=== PATIENT | female | born 1995 | race Caucasian/White ===

== ENCOUNTER 2018-10-04 12:26 | Emergency (ER) | payer BC ==
[2018-10-04] MEDS ORDERED: Promethazine 25 MG Tab PO ONE (12:27)
[2018-10-04 12:45] VITALS: BP 110/49
[2018-10-04] MEDS ORDERED: Sodium Chloride 0.9% 1,000 ML IV ONE (12:57)
[2018-10-04] MEDS ORDERED: Ondansetron 4 MG/2 ML SDV IVPUSH PRN (13:00)
[2018-10-04 13:11] LABS: CHLORIDE,CL 104 mEq/L (98-106); SODIUM,NA 140 mEq/L (136-145)
--- NOTE | 2018-10-04 13:32 | EDM.PDOC ---
ED HPI GENERAL MEDICAL PROBLEM - General Chief Complaint: Headache Stated Complaint: HEADACHE,RIGHT SIDED PAIN Time Seen by Provider: 10/04/18 12:45 Source of Information: Reports: Patient, Family History Limitations: Reports: No Limitations - History of Present Illness INITIAL COMMENTS - FREE TEXT/NARRATIVE: Germania is a 22 year old female who presents to the ED with c/o headache. She reports around 1030 this am, she noticed some vision loss/blurred vision of her right eye and she had some right arm numbness and tingling. She reports that those have since resolved, but she does have a "terrible headache" and is nauseated. Reports upon presentation her vision is normal, but does "come and go." She reports she did take Tylenol prior to coming to ED. She reports she hasn't been sleeping well the past few days and is very tired. She does report that she had her menstrual cycle on September 16. She reports she missed a pill a few days ago and then took 2 the next day. She has had some spotting since then. Chart review does show that she was in in 2016 with same complaints. Did have normal head CT at that time and was diagnosed with atypical migraines. She reports she has not had an episode like this again until now. GCS 15. Onset: Today, Sudden Onset Date: 10/04/18 Onset Time: 10:30 Duration: Constant Location: Reports: Head Quality: Reports: Ache, Throbbing Severity: Severe Improves with: Reports: None Worsens with: Reports: Movement Context: Reports: Activity Associated Symptoms: Reports: Headaches, Nausea/Vomiting (nausea, no vomiting). Denies: Confusion, Chest Pain, Cough, cough w sputum, Diaphoresis, Fever/ Chills, Loss of Appetite, Malaise, Rash, Seizure, Shortness of Breath, Syncope, Weakness Treatments PRIVACY COMPLIANCE MANAGER: Reports: Acetaminophen Headache Pain Score (Numeric/FACES): 5 - Related Data Allergies Allergy/AdvReac Type Severity Reaction Status Date / Time No Known Allergies Allergy Verified 10/04/18 12:32 Home Meds: Home Meds Desogestrel-Ethinyl Estradiol [Velivet 28 Day Tablet] 1 tab PO DAILY 05/16/14 [ History] Past Medical History - Past Health History Medical/Surgical History: Denies Medical/Surgical History [employer] History: Reports: Neurological History: Reports: Migraines Social & Family History - Family History Family Medical History: Noncontributory - Recreational Drug Use Recreational Drug Use: No - Living Situation & Occupation Living situation: Reports: Occupation: Employed ED ROS GENERAL - Review of Systems Review Of Systems: ROS reveals no pertinent complaints other than HPI. - Physical Exam Exam: See Below Exam Limited By: No Limitations General Appearance: Alert, WD/WN, Mild Distress Eye Exam: Bilateral Eye: EOMI, Normal Fundi, Normal Inspection, PERRL Ears: Normal External Exam, Normal Canal, Hearing Grossly Normal, Normal TMs Nose: Normal Inspection, Normal Mucosa, No Blood Throat/Mouth: Normal Inspection, Normal Lips, Normal Teeth, Normal Gums, Normal Oropharynx, Normal Voice, No Airway Compromise Head Exam: Atraumatic, Normocephalic Neck: Normal Inspection, Supple, Non-Tender, Full Range of Motion Respiratory/Chest: No Respiratory Distress, Lungs Clear, Normal Breath Sounds, No Accessory Muscle Use, Chest Non-Tender Cardiovascular: Normal Peripheral Pulses, Regular Rate, Rhythm, No Edema, No Gallop, No JVD, No Murmur, No Rub GI/Abdominal: Normal Bowel Sounds, Soft, Non-Tender, No Organomegaly, No Distention, No Abnormal Bruit, No Mass Neuro Exam (Abbreviated): Alert, Oriented, CN II-XII Intact, Normal Cognition, No Motor/Sensory Deficits. No: Confused, Disoriented, Slow to Respond, Unresponsive, Memory Loss Recent Events, Sensory/Motor Deficit Back Exam: Normal Inspection, Full Range of Motion, NT Extremities: Normal Inspection, Normal Range of Motion, Non-Tender, No Pedal Edema, Normal Capillary Refill Psychiatric: Tearful Skin Exam: Warm, Dry, Intact, Normal Color, No Rash Course - Vital Signs Last Recorded V/S: Last Vital Signs Temp 97.9 F 10/04/18 12:33 Pulse 69 10/04/18 12:33 Resp 16 10/04/18 12:33 BP 110/49 L 10/04/18 12:33 Pulse Ox 100 10/04/18 12:33 - Orders/Labs/Meds Orders: Active Orders 24 hr Category Date Time Status Ondansetron [Zofran] Med 10/04/18 13:00 Active 4 mg IVPUSH Q6H PRN Medication Orders Ondansetron HCl (Zofran) 4 mg IVPUSH Q6H PRN PRN Reason: Nausea Last Admin: 10/04/18 13:05 Dose: 4 mg Labs: Laboratory Tests 10/04/18 10/04/18 10/04/18 Range/Units 12:46 12:46 12:56 WBC 7.9 (5.0-10.0) 10^3/uL RBC 4.70 (4.00-5.50) 10^6/uL Hgb 14.1 (12.0-16.0) g/dL Hct 41.0 (37.0-47.0) % MCV 87.2 (82.0-94.0) fL MCH 30.0 (27.0-32.0) pg MCHC 34.4 (33.0-38.0) g/dL RDW Coeff of Ryan 13.2 (11.0-15.0) % Plt Count 291 (150-400) 10^3/uL Neut % (Auto) 74.4 (35-85) % Lymph % (Auto) 17.8 (10-55) % [place] % (Auto) 6.9 (0-16) % Eos % (Auto) 0.6 (0-5) % Baso % (Auto) 0.3 (0-3) % Neut # (Auto) 5.91 (1.80-7.00) 10^3/uL Lymph # (Auto) 1.41 (1.00-4.80) 10^3/uL [place] # (Auto) 0.55 (0.00-0.80) 10^3/uL Eos # (Auto) 0.05 (0.00-0.45) 10^3/uL Baso # (Auto) 0.02 10^3/uL Sodium 140 (136-145) mEq/L Potassium 3.3 L (3.5-5.0) mEq/L Chloride 104 (98-106) mEq/L Carbon Dioxide 24 (21-32) mmol/L BUN 13 (7-18) mg/dL Creatinine 0.9 (0.6-1.0) mg/dL Est Cr Clr Drug Dosing 92.82 mL/min Estimated GFR (MDRD) > 60 (>=60) mL/min Glucose 93 (75-99) mg/dL Calcium 8.4 (8.4-10.1) mg/dL Total Bilirubin 1.3 H (0.0-1.0) mg/dL AST 17 (15-37) U/L ALT 28 (12-78) U/L Alkaline Phosphatase 50 (46-116) U/L C-Reactive Protein 0.6 (0.2-0.8) mg/dL Total Protein 7.0 (6.4-8.2) g/dL Albumin 3.6 (3.4-5.0) g/dL Urine Color Yellow (YELLOW) Urine Appearance Slightly cloudy (CLEAR) Urine pH 7.0 (4.5-8.0) Ur Specific [place] 1.025 H (1.003-1.020) Urine Protein Negative (NEGATIVE) mg/dL Urine Glucose (UA) Negative (NEGATIVE) mg/dL Urine Ketones 40 H (NEGATIVE) mg/dL Urine Occult Blood Moderate H (NEGATIVE) Urine Nitrite Negative (NEGATIVE) Urine Bilirubin Negative (NEGATIVE) Urine Urobilinogen 0.2 (0.2-1.0) EU/dL Ur Leukocyte Esterase Negative (NEGATIVE) Urine RBC 0-5 (0-5) /HPF Urine WBC Not seen (0-5) /HPF Ur Squamous Epith Cells Few H (NOT SEEN) /HPF Urine Bacteria Occasional H (NOT SEEN) /HPF Urine Mucus Few H (NOT SEEN) /HPF Urine HCG, Qual 10/04/18 Range/Units 13:18 WBC (5.0-10.0) 10^3/uL RBC (4.00-5.50) 10^6/uL Hgb (12.0-16.0) g/dL Hct (37.0-47.0) % MCV (82.0-94.0) fL MCH (27.0-32.0) pg MCHC (33.0-38.0) g/dL RDW Coeff of Ryan (11.0-15.0) % Plt Count (150-400) 10^3/uL Neut % (Auto) (35-85) % Lymph % (Auto) (10-55) % [place] % (Auto) (0-16) % Eos % (Auto) (0-5) % Baso % (Auto) (0-3) % Neut # (Auto) (1.80-7.00) 10^3/uL Lymph # (Auto) (1.00-4.80) 10^3/uL [place] # (Auto) (0.00-0.80) 10^3/uL Eos # (Auto) (0.00-0.45) 10^3/uL Baso # (Auto) 10^3/uL Sodium (136-145) mEq/L Potassium (3.5-5.0) mEq/L Chloride (98-106) mEq/L Carbon Dioxide (21-32) mmol/L BUN (7-18) mg/dL Creatinine (0.6-1.0) mg/dL Est Cr Clr Drug Dosing mL/min Estimated GFR (MDRD) (>=60) mL/min Glucose (75-99) mg/dL Calcium (8.4-10.1) mg/dL Total Bilirubin (0.0-1.0) mg/dL AST (15-37) U/L ALT (12-78) U/L Alkaline Phosphatase (46-116) U/L C-Reactive Protein (0.2-0.8) mg/dL Total Protein (6.4-8.2) g/dL Albumin (3.4-5.0) g/dL Urine Color (YELLOW) Urine Appearance (CLEAR) Urine pH (4.5-8.0) Ur Specific [place] (1.003-1.020) Urine Protein (NEGATIVE) mg/dL Urine Glucose (UA) (NEGATIVE) mg/dL Urine Ketones (NEGATIVE) mg/dL Urine Occult Blood (NEGATIVE) Urine Nitrite (NEGATIVE) Urine Bilirubin (NEGATIVE) Urine Urobilinogen (0.2-1.0) EU/dL Ur Leukocyte Esterase (NEGATIVE) Urine RBC (0-5) /HPF Urine WBC (0-5) /HPF Ur Squamous Epith Cells (NOT SEEN) /HPF Urine Bacteria (NOT SEEN) /HPF Urine Mucus (NOT SEEN) /HPF Urine HCG, Qual Negative Meds: Medications Generic Name Dose Route Start Last Admin Trade Name Freq PRN Reason Stop Dose Admin Ondansetron HCl 4 mg 10/04/18 13:00 10/04/18 13:05 Zofran IVPUSH 4 mg Q6H PRN Administration Nausea Discontinued Medications Generic Name Dose Route Start Last Admin Trade Name Freq PRN Reason Stop Dose Admin Sodium Chloride 1,000 mls @ 999 mls/hr 10/04/18 12:57 10/04/18 13:10 Normal Saline IV 10/04/18 13:57 999 mls/hr .BOLUS ONE Administration Ketorolac Tromethamine 30 mg 10/04/18 13:34 10/04/18 13:42 Toradol IVPUSH 10/04/18 13:35 30 mg ONETIME ONE Administration - Re-Assessments/Exams Free Text/Narrative Re-Assessment/Exam: 10/04/18 13:00 Discussed exam findings and past medical history including similar presenting symptoms with migraine. At this time I do not feel imaging is warranted. Patient has no neurological deficit. Same aura as previous migraine in 2016. We will hydrate her. Check labs. Zofran for nausea. 10/04/2018 13:45 Discussed lab findings with patient. Will finish fluid bolus and see how patient is doing. Toradol for headache. 10/04/18 14:08 Patient reports her headache has improved. She has no neurological deficit. Is alert and oriented. She wishes to go home. She is still nauseated but reports she hasn't eaten anything since yesterday. Discussed discharge recommendations with patient. Departure - Departure Time of Disposition: 14:10 Disposition: Home, Self-Care 01 Clinical Impression: Migraine with aura Qualifiers: Status migrainosus presence: without status migrainosus Intractability: not intractable Qualified Code(s): G43.109 - Migraine with aura, not intractable, without status migrainosus - Discharge Information *PRESCRIPTION DRUG MONITORING PROGRAM REVIEWED*: Not Applicable *COPY OF PRESCRIPTION DRUG MONITORING REPORT IN PATIENT [place]: Not Applicable Instructions: Migraine Headache, [id number] Forms: ED Department Discharge Additional Instructions: 1) Tylenol 1000 mg every 6 hours as needed for headache. Ibuprofen 800 mg every 8 hours as needed for headache. Alternate the two. 2) Push fluids. Drink at least 64 oz fluid daily. 3) In future, take 800 mg ibuprofen immediately at onset of aura (vision changes /arm numbness). 4) If migraines get more frequent need to follow up. Keep log of migraine headaches. 5) Promethazine every 6 hours as needed for nausea 6) Follow up in clinic for ED recheck in 5-7 days 7) Return to Ed for any worsening of symptoms or any other emergent needs - My Orders Last 24 Hours: My Active Orders 10/04/18 13:00 Ondansetron [Zofran] 4 mg IVPUSH Q6H PRN - Assessment/Plan Last 24 Hours: My Active Orders 10/04/18 13:00 Ondansetron [Zofran] 4 mg IVPUSH Q6H PRN
[2018-10-04] MEDS ORDERED: Ketorolac 30 MG/ML SDV IVPUSH ONE (13:34)
[2018-10-04] MEDS ORDERED: Take Home: Promethazine 25 MG, 4 Tab Pack PO ONE (14:14)
== END 2018-10-04 14:25 | disposition home or self-care (01) ==
LOC: CC.ED 12:26
DX: G43.109 Migraine with aura, not intractable, without status migrainosus (principal); Z79.899 Other long term (current) drug therapy
CPT/HCPCS: 36415; 80053; 81001; 81025; 85025; 86140; 96361; 96374; 99284; J1885; J2405; J7030; A9270-GY